=== PATIENT | female | born 1960 | race Caucasian/White ===

== ENCOUNTER 2021-05-14 12:39 | Emergency (ER) | payer OTHER ==
[2021-05-14] MEDS ORDERED: CEFTRIAXONE 1000 MG/VIAL ONE (13:46)
[2021-05-14 14:08] LABS: Urine Blood Trace-lysed (Negative); Urine Glucose Negative (Negative); Urine Protein 2+ (Negative); Urine Specific Gravity 1.025 (1.005-1.030); Urine pH 5.5 (5.0-7.0)
[2021-05-14 14:24] LABS: Absolute Lymphocytes (CBC) 0.6 K/uL (0.7-4.9); Basophils % 0.3 % (0-1.3); Hematocrit 41.5 % (36.0-45.0); Lymphocytes % 8.4 % (15.3-44.8); MPV 8.8 fL (7.6-11.3); RBC Red Blood Cell Count 4.82 M/uL (3.86-4.86)
--- NOTE | 2021-05-14 14:27 | RAD REPORT ---
EXAM DESCRIPTION: RAD - Chest Single View - 05/14/2021 2:09 pm CLINICAL HISTORY: CONGESTION COMPARISON: Chest Pa And Lat (2 Views) dated 04/28/2017; CHEST PA AND LAT 2 VIEW dated 03/05/2010; CH EST PA AND LAT 2 VIEW dated 11/17/2005 FINDINGS: Lines: None. Lungs: New linear opacities in the left mid lung and left lung base. Pleural: No significant pleural effusions or pneumothorax. Cardiac: The heart size is within normal limits. Bones: No acute fractures. Other: IMPRESSION: Linear left mid lung and basilar opacities could represent pneumonia in the appropriate clinical setting.
[2021-05-14 14:34] LABS: Protime INR 1.01
[2021-05-14 14:41] LABS: Urine Bacteria <20 /HPF (<20); Urine RBC <5 /HPF (NONE SEEN)
[2021-05-14 14:50] LABS: ALT/SGPT 36 U/L (12-78); AST/SGOT 88 U/L (15-37); Albumin 3.4 g/dL (3.4-5.0); Alkaline Phosphatase 80 U/L (45-117); Amylase 51 U/L (25-115); BUN Blood Urea Nitrogen 22 mg/dL (7-18); Bicarbonate 31 mmol/L (21-32); Bilirubin Direct 0.3 mg/dL (0-0.2); Bilirubin Total 0.6 mg/dL (0.2-1.0); CKMB Creatine Kinase MB 6.5 ng/mL (1.0-3.6); Creatine Phosphokinase 792 U/L (26-192); Glucose Level 125 mg/dL (74-106); Lipase 72 U/L (73-393); Magnesium 2.3 mg/dL (1.8-2.4); NT PRO-BNP 55 pg/mL (<125); Protein, Total 7.7 g/dL (6.4-8.2); Sodium Level 138 mmol/L (136-145); Troponin (Emerg Dept Use Only) < 0.02 ng/mL (0.0-0.045)
[2021-05-14 14:53] LABS: Potassium 2.9 mmol/L (3.5-5.1)
[2021-05-14] MEDS ORDERED: HYDROMORPHONE HCL 1 MG/ML INJ ONE (15:21)
[2021-05-14] MEDS ORDERED: AZITHROMYCIN 500 MG INJ IVPB ONE (15:22)
[2021-05-14] MEDS ORDERED: MAGNESIUM SULFATE 1 gm IVPB 2 GM/200 ML BAG IV ONE (15:22)
[2021-05-14] MEDS ORDERED: NA CHLORIDE 0.9% 1,000 ML ONE (15:22)
[2021-05-14] MEDS ORDERED: NA CHLORIDE 0.9% 250 ML ONE (15:22)
[2021-05-14] MEDS ORDERED: KCL 20 MEQ/100 mL IVPB 20 MEQ/100 ML BAG IV ONE (15:22)
[2021-05-14] MEDS ORDERED: METHYLPREDNISOLONE 125 MG INJ ONE (16:12)
--- NOTE | 2021-05-14 18:35 | EDPHYS ---
Physician Documentation [facility] Name: Mary Harman Age: 60 yrs Sex: Female : 1960 Arrival Date: 05/14/2021 Time: 12:42 Bed 26 Private MD: ED Physician Ryan Carbajal HPI: 05/14 13:40 This 60 yrs old Female presents to ER via Wheelchair with complaints of ma2 Fever, Shortness Of Breath, Weakness, Cough. 13:40 The patient reports fever, not measured (subjective). Onset: The symptoms/episode ma2 began/occurred gradually, 2 day(s) ago. Associated signs and symptoms: Pertinent positives: cough, diarrhea, Pertinent negatives: altered mental status, chest pain, chills, diarrhea. Severity of symptoms: At their worst the symptoms were moderate in the emergency department the symptoms are unchanged. The patient has not experienced similar symptoms in the past. Historical: - Allergies: 13:14 Morphine; vg1 - PMHx: 13:14 Arthritis; vg1 - PSHx: 13:14 Ligation of fallopian tube; vg1 - Immunization history:: Client reports having NOT received the Covid vaccine. - Social history:: Smoking status: Patient denies any tobacco usage or history of. Patient/guardian denies using alcohol, street drugs, The patient lives with family. - Family history:: not pertinent. ROS: 13:40 Constitutional: Negative for fever, chills, and weight loss. ma2 13:40 All other systems are negative. Exam: 13:40 Constitutional: This is a well developed, well nourished patient who is awake, alert, ma2 and in no acute distress. Head/Face: Normocephalic, atraumatic. Eyes: Pupils equal round and reactive to light, extra-ocular motions intact. Lids and lashes normal. Conjunctiva and sclera are non-icteric and not injected. Cornea within normal limits. Periorbital areas with no swelling, redness, or edema. ENT: Nares patent. No nasal discharge, no septal abnormalities noted. Tympanic membranes are normal and external auditory canals are clear. Oropharynx with no redness, swelling, or masses, exudates, or evidence of obstruction, uvula midline. Mucous membranes moist. Neck: Trachea midline, no thyromegaly or masses palpated, and no cervical lymphadenopathy. Supple, full range of motion without nuchal rigidity, or vertebral point tenderness. No Meningismus. Chest/axilla: Normal chest wall appearance and motion. Nontender with no deformity. No lesions are appreciated. Cardiovascular: Regular rate and rhythm with a normal S1 and S2. No gallops, murmurs, or rubs. Normal PMI, no JVD. No pulse deficits. Respiratory: Lungs have equal breath sounds bilaterally, clear to auscultation and percussion. No rales, rhonchi or wheezes noted. No increased work of breathing, no retractions or nasal flaring. Abdomen/GI: Soft, non-tender, with normal bowel sounds. No distension or tympany. No guarding or rebound. No evidence of tenderness throughout. Skin: Warm, dry with normal turgor. Normal color with no rashes, no lesions, and no evidence of cellulitis. MS/ Extremity: Pulses equal, no cyanosis. Neurovascular intact. Full, normal range of motion. Neuro: Awake and alert, GCS 15, oriented to person, place, time, and situation. Cranial nerves II-XII grossly intact. Motor strength 5/5 in all extremities. Sensory grossly intact. Cerebellar exam normal. Normal gait. Vital Signs: 13:11 BP 118 / 83; Pulse 98; Resp 20; Temp 98.1; Pulse Ox 98% on R/A; Weight 72.57 kg; Height vg1 5 ft. 4 in. (162.56 cm); Pain 8/10; 13:30 BP 106 / 91; Pulse 97; Resp 18; Pulse Ox 98% on R/A; ld1 15:52 BP 111 / 77; Pulse 88; Resp 17; Pulse Ox 95% on R/A; ld1 17:07 BP 108 / 80; Pulse 83; Resp 17; Pulse Ox 96% on R/A; ld1 18:18 BP 116 / 87; Pulse 88; Resp 18; Pulse Ox 95% on R/A; ld1 13:11 Body Mass Index 27.46 (72.57 kg, 162.56 cm) vg1 MDM: 13:22 Patient medically screened. ma2 13:40 Differential diagnosis: viral Infection, URI, bronchitis, pneumonia UTI, ma2 gastroenteritis. 18:33 Data reviewed: vital signs, nurses notes. Counseling: I had a detailed discussion with ma2 the patient and/or guardian regarding: the historical points, exam findings, and any diagnostic results supporting the discharge/admit diagnosis, the presence of at least one elevated blood pressure reading (>120/80) during this emergency department visit, the need for outpatient follow up. Response to treatment: the patient's symptoms have markedly improved after treatment. 18:35 ED course: patient has dehydration, pneumonia + COVID 19. i recommends admission/obs ma2 however she want to go home and will return to er for any worsening of symptoms . 05/14 13:21 Order name: Basic Metabolic Panel [facility] 05/14 13:21 Order name: CBC with Diff; Complete Time: 15:18 [facility] 05/14 13:21 Order name: LFT's; Complete Time: 15:18 [facility] 05/14 13:21 Order name: Magnesium; Complete Time: 15:18 [facility] 05/14 13:21 Order name: NT PRO-BNP; Complete Time: 15:18 [facility] 05/14 13:21 Order name: PT-INR; Complete Time: 15:18 [facility] 05/14 13:21 Order name: Troponin (emerg Dept Use Only); Complete Time: 15:18 [facility] 05/14 13:21 Order name: Basic Metabolic Panel; Complete Time: 15:18 [facility] 05/14 13:36 Order name: Blood Culture Adult (2) [facility] 05/14 13:36 Order name: Lactate; Complete Time: 15:18 [facility] 05/14 13:21 Order name: XRAY Chest (1 view); Complete Time: 15:18 [facility] 05/14 13:36 Order name: Procalcitonin; Complete Time: 15:18 [facility] 05/14 13:36 Order name: Urine Microscopic Only; Complete Time: 15:18 [facility] 05/14 14:07 Order name: Urine Dipstick-Ancillary; Complete Time: 15:18 [facility] 05/14 14:11 Order name: Glucose, Ancillary Testing; Complete Time: 15:18 [facility] 05/14 14:11 Order name: Glucose, Ancillary Testing [facility] 05/14 14:11 Order name: Creatine Phosphokinase; Complete Time: 15:18 [facility] 05/14 14:11 Order name: CKMB Creatine Kinase MB; Complete Time: 15:18 [facility] 05/14 14:11 Order name: Amylase; Complete Time: 15:18 [facility] 05/14 14:11 Order name: Lipase; Complete Time: 15:18 [facility] 05/14 14:12 Order name: PTT, Activated Partial Thromb; Complete Time: 15:18 [facility] 05/14 14:19 Order name: SARS-COV-2 RT PCR; Complete Time: 17:19 [facility] 05/14 13:21 Order name: EKG; Complete Time: 13:22 ma2 05/14 13:21 Order name: Cardiac monitoring; Complete Time: 14:03 ma2 05/14 13:21 Order name: EKG - Nurse/Tech; Complete Time: 13:25 ma2 05/14 13:21 Order name: IV Saline Lock; Complete Time: 14:12 ma2 05/14 13:21 Order name: Labs collected and sent; Complete Time: 14:12 ma2 05/14 13:21 Order name: O2 Per Protocol; Complete Time: 13:30 ma2 05/14 13:21 Order name: O2 Sat Monitoring; Complete Time: 13:30 ma2 05/14 13:22 Order name: Urine Dipstick-Ancillary (obtain specimen); Complete Time: 14:12 ma2 05/14 13:36 Order name: Accucheck; Complete Time: 14:12 ma2 05/14 13:36 Order name: IV Saline Lock - Large Bore; Complete Time: 14:12 ma2 Administered Medications: 13:55 Drug: Rocephin (cefTRIAXone) 1 grams Route: IV; Rate: calculated rate; Site: left ld1 antecubital; 14:12 Follow up: Response: No adverse reaction ld1 15:30 Drug: Dilaudid (HYDROmorphone) 1 mg Route: IVP; Site: left antecubital; ld1 15:52 Follow up: Response: No adverse reaction ld1 15:52 Drug: Magnesium Sulfate 2 grams Route: IVPB; Infused Over: 2 hrs; Site: left ld1 antecubital; 18:24 Follow up: Response: No adverse reaction; IV Status: Completed infusion; IV Intake: ld1 200ml 15:52 Drug: AZITHromycin 500 mg Route: IVPB; Infused Over: 1 hrs; Site: left antecubital; ld1 18:24 Follow up: Response: No adverse reaction; IV Status: Completed infusion; IV Intake: ld1 250ml 16:27 Drug: Potassium Chloride 20 mEq Route: IV; Rate: calculated rate; Site: right ld1 antecubital; 18:25 Follow up: Response: No adverse reaction; IV Status: Completed infusion; IV Intake: ld1 100ml 16:27 Drug: NS 0.9% 1000 ml Route: IV; Rate: 1 bolus; Site: right antecubital; ld1 18:24 Follow up: Response: No adverse reaction; IV Status: Completed infusion; IV Intake: ld1 1000ml 16:27 Drug: MethylPrednisoLONE 125 mg Route: IVP; Site: right antecubital; ld1 18:25 Follow up: Response: No adverse reaction ld1 Disposition Summary: 05/14/21 18:34 Discharge Ordered Location: Home ma2 Condition: Stable ma2 Diagnosis - Dehydration - COVID 19 (05/14/21 18:35) ma2 - Hypokalemia ma2 - Other viral pneumonia ma2 Followup: ma2 - With: Private Physician - When: Tomorrow - Reason: If symptoms return, Continuance of care Discharge Instructions: - Discharge Summary Sheet ma2 - Dehydration, Adult ma2 - Nausea and Vomiting, Adult ma2 - Potassium Content of Foods ma2 Forms: - Medication Reconciliation Form ma2 - Thank You Letter ma2 - Antibiotic Education ma2 - Prescription Opioid Use ma2 Prescriptions: - Zofran 4 mg Oral Tablet - take 1 tablet by ORAL route every 12 hours As needed; 20 tablet; Refills: 0, ma2 Product Selection Permitted - Klor-Con 10 10 mEq Oral Tablet Sustained Release - take 1 tablet by ORAL route once daily; 20 tablet; Refills: 0, Product ma2 Selection Permitted - Zithromax Z-Phillip 250 mg Oral Tablet - take 1 tablet by ORAL route as directed for 5 days Day 1 - take two (2) tablets ma2 one time. Day 2, 3, 4 , 5 take one (1) tablet once daily.; 6 tablet; Refills: 0, Product Selection Permitted - Medrol (Phillip) 4 mg Oral Tablets, Dose Pack - take 1 tablet by ORAL route as directed - follow package instructions; 1 ma2 packet; Refills: 0, Product Selection Permitted Signatures: Dispatcher [employer] EDRyan Maza MD MD ma2 Britt Galeas RN RN 1 Kiley Mac RN RN ld1 Corrections: (The following items were deleted from the chart) 14:10 13:36 AMYLASE, SERUM+C.LAB.BRZ ordered. EDMS EDMS 14:10 13:36 CREATINE PHOSPHOKINASE+C.LAB.BRZ ordered. EDMS EDMS 14:10 13:36 CKMB+C.LAB.BRZ ordered. EDMS EDMS 14:10 13:36 LIPASE+C.LAB.BRZ ordered. EDMS EDMS 14:12 13:36 PTT, ACTIVATED+COAG.LAB.BRZ ordered. EDMS EDMS 18:35 18:34 Dehydration - COVID 19, pneumonia ma2 ma2
--- NOTE | 2021-05-14 18:35 | ER ---
Nurse's Notes [facility] Name: Mary Harman Age: 60 yrs Sex: Female : 1960 Arrival Date: 05/14/2021 Time: 12:42 Bed 26 Private MD: Diagnosis: Dehydration-COVID 19 ;Hypokalemia;Other viral pneumonia Presentation: 05/14 13:11 Chief complaint: Patient states: Since MondayMay 10 pt has had nausea, fever, vg1 weakness and shortness of breath. States back pain between the shoulders, denies cough. Pt states saw Dr Cruz yesterday and was given Tamiflu. Coronavirus screen: Vaccine status: Patient reports being unvaccinated. Client denies travel out of the [place] in the last 14 days. Client presents with at least one sign or symptom that may indicate coronavirus-19. Standard/surgical mask placed on the client. Ebola Screen: Patient negative for fever greater than or equal to 101.5 degrees Fahrenheit, and additional compatible Ebola Virus Disease symptoms. Initial Sepsis Screen: Does the patient meet any 2 criteria? No. Patient's initial sepsis screen is negative. Does the patient have a suspected source of infection? No. Patient's initial sepsis screen is negative. Risk Assessment: Do you want to hurt yourself or someone else? Patient reports no desire to harm self or others. Onset of symptoms was May 10, 2021. 13:11 Method Of Arrival: Wheelchair vg1 13:11 Acuity: RONNA 3 vg1 Triage Assessment: 13:14 General: Appears in no apparent distress. uncomfortable, Behavior is calm, cooperative. vg1 Pain: Complains of pain in left scapular area and right scapular area Pain currently is 8 out of 10 on a pain scale. Respiratory: Reports shortness of breath on exertion Onset: The symptoms/episode began/occurred Novemeber 1, the patient has mild shortness of breath. Historical: - Allergies: 13:14 Morphine; vg1 - PMHx: 13:14 Arthritis; vg1 - PSHx: 13:14 Ligation of fallopian tube; vg1 - Immunization history:: Client reports having NOT received the Covid vaccine. - Social history:: Smoking status: Patient denies any tobacco usage or history of. Patient/guardian denies using alcohol, street drugs, The patient lives with family. - Family history:: not pertinent. Screenin:30 Abuse screen: Denies threats or abuse. Denies injuries from another. Nutritional ld1 screening: No deficits noted. Tuberculosis screening: No symptoms or risk factors identified. Fall Risk None identified. Assessment: 13:30 General: Appears in no apparent distress. uncomfortable, Behavior is calm, cooperative, ld1 appropriate for age. 13:30 Pain: Denies pain. Neuro: Level of Consciousness is awake, alert, obeys commands, ld1 Oriented to person, place, time, situation. Cardiovascular: Capillary refill < 3 seconds Patient's skin is warm and dry. Rhythm is regular. Respiratory: Airway is patent Respiratory effort is even, unlabored, Respiratory pattern is regular, symmetrical. Respiratory: Breath sounds are clear bilaterally. GI: Abdomen is round non-distended. : No signs and/or symptoms were reported regarding the genitourinary system. EENT: No signs and/or symptoms were reported regarding the EENT system. Derm: No signs and/or symptoms reported regarding the dermatologic system. Musculoskeletal: No signs and/or symptoms reported regarding the musculoskeletal system. 15:52 Reassessment: Patient appears in no apparent distress at this time. Patient is alert, ld1 oriented x 3, equal unlabored respirations, skin warm/dry/pink. 17:07 Reassessment: Patient appears in no apparent distress at this time. Patient and/or ld1 family updated on plan of care and expected duration. Pain level reassessed. Patient is alert, oriented x 3, equal unlabored respirations, skin warm/dry/pink. 18:18 Reassessment: Patient appears in no apparent distress at this time. No changes from ld1 previously documented assessment. Patient and/or family updated on plan of care and expected duration. Pain level reassessed. Patient is alert, oriented x 3, equal unlabored respirations, skin warm/dry/pink. Vital Signs: 13:11 BP 118 / 83; Pulse 98; Resp 20; Temp 98.1; Pulse Ox 98% on R/A; Weight 72.57 kg; Height vg1 5 ft. 4 in. (162.56 cm); Pain 8/10; 13:30 BP 106 / 91; Pulse 97; Resp 18; Pulse Ox 98% on R/A; ld1 15:52 BP 111 / 77; Pulse 88; Resp 17; Pulse Ox 95% on R/A; ld1 17:07 BP 108 / 80; Pulse 83; Resp 17; Pulse Ox 96% on R/A; ld1 18:18 BP 116 / 87; Pulse 88; Resp 18; Pulse Ox 95% on R/A; ld1 13:11 Body Mass Index 27.46 (72.57 kg, 162.56 cm) vg1 ED Course: 12:42 Patient arrived in ED. mr 13:14 Triage completed. vg1 13:14 Arm band placed on. vg1 13:22 Ryan Carbajal MD is Attending Physician. ma2 13:25 EKG done, by ED staff, reviewed by Ryan Carbajal MD. mh5 13:30 No provider procedures requiring assistance completed. Inserted saline lock: 20 gauge ld1 in left antecubital area, using aseptic technique. Blood collected. 14:03 Patient has correct armband on for positive identification. Placed in gown. Bed in low mh5 position. Call light in reach. Side rails up X2. Warm blanket given. conveyor monitor on. Pulse ox on. NIBP on. 14:09 XRAY Chest (1 view) In Process Unspecified. EDMS 15:19 SARS-COV-2 RT PCR Sent. ld1 15:51 Kiley Mac, HALLIE is Primary Nurse. ld1 16:27 Inserted saline lock: 20 gauge in right antecubital area, using aseptic technique. ld1 18:58 IV discontinued, intact, bleeding controlled, No redness/swelling at site. ld1 Administered Medications: 13:55 Drug: Rocephin (cefTRIAXone) 1 grams Route: IV; Rate: calculated rate; Site: left ld1 antecubital; 14:12 Follow up: Response: No adverse reaction ld1 15:30 Drug: Dilaudid (HYDROmorphone) 1 mg Route: IVP; Site: left antecubital; ld1 15:52 Follow up: Response: No adverse reaction ld1 15:52 Drug: Magnesium Sulfate 2 grams Route: IVPB; Infused Over: 2 hrs; Site: left ld1 antecubital; 18:24 Follow up: Response: No adverse reaction; IV Status: Completed infusion; IV Intake: ld1 200ml 15:52 Drug: AZITHromycin 500 mg Route: IVPB; Infused Over: 1 hrs; Site: left antecubital; ld1 18:24 Follow up: Response: No adverse reaction; IV Status: Completed infusion; IV Intake: ld1 250ml 16:27 Drug: Potassium Chloride 20 mEq Route: IV; Rate: calculated rate; Site: right ld1 antecubital; 18:25 Follow up: Response: No adverse reaction; IV Status: Completed infusion; IV Intake: ld1 100ml 16:27 Drug: NS 0.9% 1000 ml Route: IV; Rate: 1 bolus; Site: right antecubital; ld1 18:24 Follow up: Response: No adverse reaction; IV Status: Completed infusion; IV Intake: ld1 1000ml 16:27 Drug: MethylPrednisoLONE 125 mg Route: IVP; Site: right antecubital; ld1 18:25 Follow up: Response: No adverse reaction ld1 Intake: 18:24 IV: 250ml; Total: 250ml. ld1 18:24 IV: 200ml; Total: 450ml. ld1 18:24 IV: 1000ml; Total: 1450ml. ld1 18:25 IV: 100ml; Total: 1550ml. ld1 Outcome: 18:34 Discharge ordered by . ma2 18:58 Discharged to home ambulatory. ld1 18:58 Condition: stable 18:58 Discharge instructions given to patient, Instructed on discharge instructions, follow up and referral plans. medication usage, Demonstrated understanding of instructions, follow-up care, medications, Prescriptions given X 4. 18:59 Patient left the ED. ld1 Signatures: Dispatcher [employer] [facility] Wesley Nazanin BullRhona 5 Ryan Carbajal MD MD ma2 Britt Galeas, HALLIE RN 1 Kiley Mac RN RN ld1 Corrections: (The following items were deleted from the chart) 14:10 14:02 CREATINE PHOSPHOKINASE+C.LAB.BRZ drawn and sent. [address]
[2021-05-14 19:07] VITALS: TEMP 98.1
[2021-05-14 19:13] VITALS: BP 116/87; O2SAT 95
--- NOTE | 2021-05-17 18:33 | EKG ---
Test Date: 2021-05-14 Test Time: 13:37:06 [place]zer Operator: STANLEY MEASUREMENT RESULTS: Intervals: Rate: 87 WY: 136 QRSD: 74 QT: 386 QTc: 464 [place]wey: P: 48 WY: 136 QRS: 54 T: 30 INTERPRETIVE STATEMENTS: Normal sinus rhythm Normal ECG Compared to ECG 03/05/2010 06:40:38 No significant changes Electronically Signed On 05-17-21 18:24:39 FIRE WATCHER by Ronald Smalls
== END 2021-05-14 18:59 | disposition home or self-care (01) ==
LOC: ER 12:39 → SUPCPDRO 12:39 → ER 18:59
DX: U07.1 COVID-19 (principal); J12.89 Other viral pneumonia; E87.6 Hypokalemia; Z88.5 Allergy status to narcotic agent
CPT/HCPCS: 93005; 87040 ×2; 85025; 80048; 36415; 82150; 83735; 82550; 85610; 82947; 80076; 83605; 85730; 84484; 82553; 83690; 84145; 83880; 71045; 99285; U0003; J0456; J3480; J3475; J1170; J7050; J7030; J2930; 81003; 81015

== ENCOUNTER 2024-06-13 14:02 | Emergency (ER) | payer BC, OTHER ==
[2024-06-13 15:51] LABS: Absolute Basophils 0.1 K/uL (0-0.5); Absolute Lymphocytes (CBC) 1.8 K/uL (0.7-4.9); Absolute Monocytes 1.3 K/uL (0.1-1.3); Absolute Neutrophil 9.7 K/uL (1.8-8.0); Basophils % 0.5 % (0-1.3); Eosinophils % 0.4 % (0-4.4); Hematocrit 43.2 % (36.0-45.0); Hemoglobin 14.4 g/dL (12.0-15.0); Lymphocytes % 14.3 % (15.3-44.8); MCH 28.3 pg (27.0-35.0); MCHC 33.2 g/dL (32.0-36.0); MCV 85.3 fL (80-100); MPV 7.6 fL (7.6-11.3); Monocytes % 10.1 % (3.3-12.3); Neutrophils % 74.7 % (41.7-73.7); Nucleated Red Blood Cells % 0.2 % (0-0); Platelets 462 thou/uL (152-406); RBC Red Blood Cell Count 5.07 M/uL (3.86-4.86); Red Cell Distribution Width 13.6 % (12.1-15.2)
[2024-06-13 16:10] LABS: SARS-CoV-2 Antigen CONTROL BLUE LINE VIS/BG OK; SARS-CoV-2 Antigen Rapid Res Negative (Negative)
[2024-06-13 16:14] LABS: Albumin 3.7 g/dL (3.4-5.0); Albumin/Globulin Ratio 0.9 (1.1-1.8); Anion Gap 10.5 mEq/L (5.0-15.0); Bilirubin Direct 0.2 mg/dL (0-0.2); Bilirubin Indirect, Calculated 0.4 mg/dL (0.2-0.8); Bilirubin Total 0.6 mg/dL (0.2-1.0); Globulin 4.2 g/dL (2.3-3.5); Magnesium 3.5 mg/dL (1.6-2.4); Protein, Total 7.9 g/dL (6.4-8.2); Troponin High Sensitivity 3.4 pg/mL (<58.9)
[2024-06-13 16:16] LABS: Potassium 2.5 mEq/L (3.5-5.1)
[2024-06-13] MEDS ORDERED: NA CHLORIDE 0.9% 1,000 ML ONE (16:40)
[2024-06-13] MEDS ORDERED: POTASSIUM 25 MEQ EFFERV TAB ONE (16:40)
--- NOTE | 2024-06-13 16:56 | RAD REPORT ---
EXAMINATION: ONE VIEW CHEST XR CLINICAL INDICATION: Female, 64 years old.,Cough;Chest pain TECHNIQUE: Frontal chest projection is submitted. Examination is limited by patient positioning and t echnique. COMPARISON: 05/14/2021 FINDINGS: The lungs are well inflated and clear. Elevation of the right hemidiaphragm again seen. No pneumothor ax or sizable effusion. The heart is normal in size. Mediastinal contours are unremarkable. IMPRESSION: No acute intrathoracic abnormalities.
--- NOTE | 2024-06-13 17:05 | ER ---
Nurse's Notes [facility] Name: Mary Harman Age: 64 yrs Sex: Female : 1960 Arrival Date: 06/13/2024 Time: 14:02 Bed 20 Private MD: Diagnosis: Hypokalemia, dehydration, generalized weakness Presentation: 06/13 14:27 Chief complaint: Patient states: I dont feel good, Im dizzy, I cant hear, daughter ko1 states she passed out on 06/09, went to urgent care and was sent here today. Coronavirus screen: At this time, the client does not indicate any symptoms associated with coronavirus-19. Ebola Screen: No symptoms or risks identified at this time. Initial Sepsis Screen: Does the patient meet any 2 criteria? No. Patient's initial sepsis screen is negative. Does the patient have a suspected source of infection? No. Patient's initial sepsis screen is negative. Risk Assessment: Do you want to hurt yourself or someone else? Patient reports no desire to harm self or others. Onset of symptoms is unknown. 14:27 Method Of Arrival: Ambulatory ko1 14:27 Acuity: RONNA 3 ko1 Triage Assessment: 14:31 General: Appears in no apparent distress. Behavior is calm, cooperative, appropriate ko1 for age. Pain: Complains of pain in right ear. Historical: - Allergies: 14:31 Morphine; ko1 - PMHx: 14:31 Arthritis; ko1 14:32 Hypertensive disorder; ko1 - PSHx: 14:31 Ligation of fallopian tube; ko1 - Immunization history:: Adult Immunizations unknown. - Infectious Disease History:: Denies. - Social history:: Smoking status: Patient denies any tobacco usage or history of. Screenin:54 [facility] ED Fall Risk Assessment (Adult) History of falling in the last 3 months, db including since admission No falls in past 3 months (0 pts) Confusion or Disorientation No (0 pts) Intoxicated or Sedated No (0 pts) Impaired Gait No (0 pts) Mobility Assist Device Used No (0 pt) Altered Elimination No (0 pt) Score/Fall Risk Level 0 - 2 = Low Risk Oriented to surroundings, Maintained a safe environment. Abuse screen: Denies threats or abuse. Denies injuries from another. Nutritional screening: No deficits noted. Tuberculosis screening: No symptoms or risk factors identified. Assessment: 15:50 Reassessment: Patient appears in no apparent distress at this time. Patient and/or db family updated on plan of care and expected duration. Pain level reassessed. Patient is alert, oriented x 3, equal unlabored respirations, skin warm/dry/pink. General: Appears in no apparent distress. comfortable, Behavior is calm, cooperative. Neuro: Level of Consciousness is awake, alert, obeys commands, Oriented to person, place, time, situation. Respiratory: Airway is patent Respiratory effort is even, unlabored, Respiratory pattern is regular, symmetrical. 16:30 Reassessment: Patient appears in no apparent distress at this time. Patient and/or db family updated on plan of care and expected duration. Pain level reassessed. Patient is alert, oriented x 3, equal unlabored respirations, skin warm/dry/pink. 18:06 Reassessment: Patient appears in no apparent distress at this time. Patient and/or db family updated on plan of care and expected duration. Pain level reassessed. Patient is alert, oriented x 3, equal unlabored respirations, skin warm/dry/pink. Patient states feeling better. Vital Signs: 14:27 BP 111 / 94; Pulse 82; Resp 15; Temp 97.1; Pulse Ox 99% ; ko1 16:38 BP 120 / 78; Pulse 63; Resp 20; Pulse Ox 96% ; db 17:15 BP 103 / 65; Pulse 70; Resp 16; Pulse Ox 98% on R/A; db 17:48 BP 114 / 84; Pulse 71; Resp 14; Temp 97.6; Pulse Ox 98% on R/A; db ED Course: 14:05 Patient arrived in ED. mr 14:09 Nico Hall MD is Attending Physician. sp3 14:30 Triage completed. ko1 14:31 Arm band placed on right wrist. Patient placed in waiting room, Patient notified of ko1 wait time. 15:13 XRAY Chest (1 view) In Process Unspecified. EDMS 15:41 Louann Garza, RN is Primary Nurse. db 15:46 SARS RAPID Sent. bc6 15:46 Flu Sent. bc6 15:46 Lactate w/ 2H reflex if indic. Sent. bc6 15:46 Basic Metabolic Panel Sent. bc6 15:46 CBC with Diff Sent. bc6 15:46 LFT's Sent. bc6 15:46 Magnesium Sent. bc6 15:46 NT PRO-BNP Sent. bc6 15:46 Troponin HS Sent. 6 15:47 Initial lab(s) drawn, by me, sent to lab. Inserted saline lock: 22 gauge in right bc6 antecubital area, using aseptic technique. Blood collected. Flushed with 10 mL NS. 16:54 Patient has correct armband on for positive identification. Side rails up X2. Client db placed on continuous cardiac and pulse oximetry monitoring. NIBP monitoring applied. precipitate washer on. Pulse ox on. NIBP on. Warm blanket given. Pillow given. 18:06 Provided Education on: DISCHARGE AND FOLLOWUP. db 18:06 No provider procedures requiring assistance completed. IV discontinued, intact, db bleeding controlled, No redness/swelling at site. Administered Medications: 16:42 Drug: NS 0.9% IV 1000 ml IV at 1 bolus Per protocol; to be given as a bolus over 60 db minutes Route: IV; Rate: 1 bolus; Site: right antecubital; 18:06 Follow up: Response: No adverse reaction; IV Status: Completed infusion; IV Intake: db 1000ml 16:42 Drug: Potassium PO Effervescent Tablet 50 mEq PO once; dissolve in 4 ounces of water or db juice Route: PO; 18:06 Follow up: Response: No adverse reaction db Medication: 18:06 VIS not applicable for this client. db Intake: 18:06 IV: 1000ml; Total: 1000ml. db Outcome: 17:04 Discharge ordered by MD. gaston 18:06 Discharged to home ambulatory, with family, db 18:06 Condition: stable 18:06 Discharge instructions given to patient, family, Instructed on discharge instructions, follow up and referral plans. 18:13 Patient left the ED. ko1 Signatures: Dispatcher [employer] EDLA Nazanin Olson, Abhishek Reg Nico Melendez MD MD sp3 Stefania Gillis RN RN ko1 Louann Garza RN RN db Karrie Sanchez 6
--- NOTE | 2024-06-13 17:05 | EDPHYS ---
Physician Documentation [facility] Name: Mary Harman Age: 64 yrs Sex: Female : 1960 Arrival Date: 06/13/2024 Time: 14:02 Bed 20 Private MD: ED Physician Nico Hall HPI: 06/13 15:33 This 64 yrs old Female presents to ER via Ambulatory with complaints of Weakness, sp3 Altered Mental Status. 15:33 64-year-old female with history of hypertension presents to the ED with chief complaint sp3 generalized weakness. Patient states this has been going on for over a week. She had negative blood work done a few weeks ago. Currently she states that she has no specific symptoms other than fatigue. She denies any headache, fever, chest pain, shortness of breath, abdominal pain, vomiting, diarrhea, rash, syncope, known sick contacts, travel history, or any other signs or symptoms on ROS at this time. She endorses mild near syncope episodes however no full passing out.. Historical: - Allergies: 14:31 Morphine; ko1 - PMHx: 14:31 Arthritis; ko1 14:32 Hypertensive disorder; ko1 - PSHx: 14:31 Ligation of fallopian tube; ko1 - Immunization history:: Adult Immunizations unknown. - Infectious Disease History:: Denies. - Social history:: Smoking status: Patient denies any tobacco usage or history of. ROS: 15:34 Constitutional: Negative for fever, chills, and weight loss, Eyes: Negative for injury, sp3 pain, redness, and discharge, ENT: Negative for injury, pain, and discharge, Neck: Negative for injury, pain, and swelling, Respiratory: Negative for shortness of breath, cough, wheezing, and pleuritic chest pain, Abdomen/GI: Negative for abdominal pain, nausea, vomiting, diarrhea, and constipation, Back: Negative for injury and pain, MS/Extremity: Negative for injury and deformity, Skin: Negative for injury, rash, and discoloration, Neuro: Negative for headache, weakness, numbness, tingling, and seizure, Psych: Negative for depression, anxiety, suicide ideation, homicidal ideation, and hallucinations, Allergy/Immunology: Negative for hives, rash, and allergies, Endocrine: Negative for neck swelling, polydipsia, polyuria, polyphagia, and marked weight changes, Hematologic/Lymphatic: Negative for swollen nodes, abnormal bleeding, and unusual bruising, 15:34 All other systems are negative, Exam: 15:34 Constitutional: This is a well developed, well nourished patient who is awake, alert, sp3 and in no acute distress. Head/Face: Normocephalic, atraumatic. Eyes: Pupils equal round and reactive to light, extra-ocular motions intact. Lids and lashes normal. Conjunctiva and sclera are non-icteric and not injected. Cornea within normal limits. Periorbital areas with no swelling, redness, or edema. ENT: Nares patent. No nasal discharge, no septal abnormalities noted. External auditory canals are clear. Oropharynx with no redness, swelling, or masses, exudates, or evidence of obstruction, uvula midline. Mucous membranes moist. Neck: Trachea midline, no thyromegaly or masses palpated, and no cervical lymphadenopathy. Supple, full range of motion without nuchal rigidity, or vertebral point tenderness. No Meningismus. Chest/axilla: Normal chest wall appearance and motion. Nontender with no deformity. No lesions are appreciated. Cardiovascular: Regular rate and rhythm with a normal S1 and S2. No gallops, murmurs, or rubs. Normal PMI, no JVD. No pulse deficits. Respiratory: Lungs have equal breath sounds bilaterally, clear to auscultation and percussion. No rales, rhonchi or wheezes noted. No increased work of breathing, no retractions or nasal flaring. Abdomen/GI: Soft, non-tender, with normal bowel sounds. No distension or tympany. No guarding or rebound. No evidence of tenderness throughout. Back: No spinal tenderness. No costovertebral tenderness. Full range of motion. Skin: Warm, dry with normal turgor. Normal color with no rashes, no lesions, and no evidence of cellulitis. MS/ Extremity: Pulses equal, no cyanosis. Neurovascular intact. Full, normal range of motion. Neuro: Awake and alert, GCS 15, oriented to person, place, time, and situation. Cranial nerves II-XII grossly intact. Motor strength 5/5 in all extremities. Sensory grossly intact. Cerebellar exam normal. Normal gait. 16:27 ECG was reviewed by the Attending Physician. EKG demonstrates normal sinus rhythm at 60 sp3 bpm with normal intervals, normal QRS, normal axis, normal ST/T-segment's without evidence of acute ischemia. Vital Signs: 14:27 BP 111 / 94; Pulse 82; Resp 15; Temp 97.1; Pulse Ox 99% ; ko1 16:38 BP 120 / 78; Pulse 63; Resp 20; Pulse Ox 96% ; db 17:15 BP 103 / 65; Pulse 70; Resp 16; Pulse Ox 98% on R/A; db 17:48 BP 114 / 84; Pulse 71; Resp 14; Temp 97.6; Pulse Ox 98% on R/A; db MDM: 14:19 Medical Screening Exam initiated sp3 15:34 Data reviewed: vital signs, nurses notes, old medical records, lab test result(s), EKG, sp3 radiologic studies. ED course: 64-year-old female with generalized weakness. Differential diagnosis includes dehydration, electrolyte abnormality, viral illness, COVID-19, influenza to a much lower degree acute coronary syndrome, pneumonia or other infection. Workup will include EKG, chest x-ray, laboratory values and general swabs with disposition pending workup and patient course.. 16:28 ED course: Workup demonstrates mild bump in creatinine and mild hypokalemia. We will sp3 replace potassium and administer normal saline and safely discharge patient home. I believe these are the reasons for her symptoms. I am not highly suspicious for cardiac abnormality with normal EKG, negative troponin or any other significant findings given normal lactate.. 06/13 14:34 Order name: Basic Metabolic Panel; Complete Time: 16:21 3 06/13 14:34 Order name: CBC with Diff; Complete Time: 16:21 3 06/13 14:34 Order name: LFT's; Complete Time: 16:21 3 06/13 14:34 Order name: Magnesium; Complete Time: 16:21 3 06/13 14:34 Order name: NT PRO-BNP; Complete Time: 16:21 sp3 06/13 14:34 Order name: Troponin HS; Complete Time: 16:21 3 06/13 14:34 Order name: Lactate w/ 2H reflex if indic.; Complete Time: 16:21 3 06/13 14:34 Order name: Flu; Complete Time: 16:21 sp3 06/13 14:34 Order name: SARS RAPID; Complete Time: 16:21 sp3 06/13 14:34 Order name: XRAY Chest (1 view); Complete Time: 17:00 sp3 06/13 14:34 Order name: EKG; Complete Time: 14:35 sp3 06/13 14:34 Order name: Cardiac monitoring; Complete Time: 16:23 sp3 06/13 14:34 Order name: EKG - Nurse/Tech; Complete Time: 16:10 sp3 06/13 14:34 Order name: IV Saline Lock; Complete Time: 15:46 sp3 06/13 14:34 Order name: Labs collected and sent; Complete Time: 15:46 sp3 06/13 14:34 Order name: O2 Per Protocol; Complete Time: 15:46 sp3 06/13 14:34 Order name: O2 Sat Monitoring; Complete Time: 15:46 sp3 Administered Medications: 16:42 Drug: NS 0.9% IV 1000 ml IV at 1 bolus Per protocol; to be given as a bolus over 60 db minutes Route: IV; Rate: 1 bolus; Site: right antecubital; 18:06 Follow up: Response: No adverse reaction; IV Status: Completed infusion; IV Intake: db 1000ml 16:42 Drug: Potassium PO Effervescent Tablet 50 mEq PO once; dissolve in 4 ounces of water or db juice Route: PO; 18:06 Follow up: Response: No adverse reaction db Disposition Summary: 06/13/24 17:04 Discharge Ordered Notes: Location: Home sp3 Condition: Stable sp3 Diagnosis - Hypokalemia, dehydration, generalized weakness sp3 Followup: sp3 - With: Private Physician - When: Upon discharge from the Emergency Department - Reason: Continuance of care Discharge Instructions: - Discharge Summary Sheet sp3 - Dehydration, Adult sp3 - Hypokalemia sp3 Forms: - Medication Reconciliation Form sp3 - Antibiotic Education sp3 - Prescription Opioid Use sp3 - Patient Portal Instructions sp3 - Leadership Thank You Letter sp3 - Work release form db - Family Work Release db Signatures: Dispatcher [employer] Nico Borjas MD MD sp3 Stefania Gillis RN RN koLouann Starkey RN RN db Corrections: (The following items were deleted from the chart) 14:35 14:34 BASIC METABOLIC PANEL+C.LAB.BRZ ordered. EDMS EDMS 14:35 14:34 CBC+H.LAB.BRZ ordered. EDMS EDMS 14:35 14:34 HEPATIC FUNCTION+C.LAB.BRZ ordered. EDMS EDMS 14:35 14:34 MAGNESIUM+C.LAB.BRZ ordered. EDMS EDMS 14:35 14:34 PROBNP+C.LAB.BRZ ordered. EDMS EDMS 14:35 14:34 Troponin High Sensitivity+C.LAB.BRZ ordered. EDMS EDMS 14:35 14:34 LACTATE+C.LAB.BRZ ordered. EDMS EDMS 14:35 14:34 Influenza Screen (A \T\ B)+BA.LAB.BRZ ordered. EDMS EDMS 14:35 14:34 SARS-COV-2 Antigen Rapid+I.LAB.BRZ ordered. EDMS EDMS
[2024-06-14 00:49] VITALS: O2SAT 98
[2024-06-14 00:50] VITALS: BP 114/84; TEMP 97.6
== END 2024-06-13 18:13 | disposition home or self-care (01) ==
LOC: ER 14:02
DX: E87.6 Hypokalemia (principal); E86.0 Dehydration; I10 Essential (primary) hypertension; Z11.52 Encounter for screening for COVID-19
CPT/HCPCS: 85025; 80048; 36415; 83735; 80076; 83605; 84484; 83880; 87804 ×2; 71045; 96360; 99285; 87811; J7030